=== PATIENT | male | born 1975 ===

== ENCOUNTER 2016-08-02 07:18 | Emergency (ER) | payer OTHER ==
--- NOTE | 2016-08-02 07:55 | C.PDOC ---
History Of Present Illness Patient is a 41 y/o male that presents to the ED for evaluation of sudden onset of right lower back pain that developed this morning. Patient states that his pain radiates down to right thigh, and notes numbness to right leg. Pt reports the pain is 10/10 in severity, and is described as burning sensation. Pt denies having this type of pain in the past. 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 Otherwise, denies any urinary symptoms, abdominal pain, n/v/d, constipation, fever, chills, or any other associated symptoms at this time. Time Seen by Provider: 08/02/16 07:29 Chief Complaint (Nursing): Back Pain History Per: Patient History/Exam Limitations: no limitations Onset/Duration Of Symptoms: Hrs Current Symptoms Are (Timing): Still Present Quality Of Discomfort: Burning, "Pain" Severity: Severe Pain Scale Rating Of: 10 Previous Symptoms: None Associated Symptoms: New Numbness. denies: Incontinence, New Weakness Exacerbating Factor(s): Nothing Recent travel outside of the [place]: No Additional History Per: Patient Past Medical History Reviewed: Historical Data, Nursing Documentation, Vital Signs Vital Signs: Last Vital Signs Temp 97.5 F L 08/02/16 10:51 Pulse 86 08/02/16 10:51 Resp 17 08/02/16 10:51 BP 129/72 08/02/16 10:51 Pulse Ox 97 08/02/16 11:17 Family History: States: Unknown Family Hx Review Of Systems Except As Marked, All Systems Reviewed And Found Negative. Constitutional: Negative for: Fever, Chills Gastrointestinal: Negative for: Nausea, Vomiting, Abdominal Pain, Diarrhea, Constipation Genitourinary: Negative for: Dysuria, Incontinence, Hematuria Musculoskeletal: Positive for: Back Pain (right lower), Leg Pain (right) Neurological: Positive for: Numbness (right leg). Negative for: Weakness, Headache, Dizziness Physical Exam - Physical Exam Appears: Non-toxic, In Acute Distress (visibly in pain) Skin: Normal Color, Warm, Dry Head: Atraumatic, Normacephalic Neck: Normal ROM, Supple Chest: Symmetrical Cardiovascular: Rhythm Regular Respiratory: Normal Breath Sounds, No Rales, No Rhonchi, No Wheezing Back: Normal Inspection, No CVA Tenderness, No Vertebral Tenderness, No Decreased ROM, No Paraspinal Tenderness Extremity: Normal ROM, No Tenderness, No Pedal Edema, Capillary Refill (< 2 sec. ), No Deformity, No Swelling Extremity: Bilateral: Atraumatic, Normal Color And Temperature, Normal ROM Neurological/Psych: Oriented x3, Normal Speech, Normal Cognition, Normal Motor, Normal Sensation ED Course And Treatment O2 Sat by Pulse Oximetry: 97 (on RA) Pulse Ox Interpretation: Normal Progress Note: Labs ordered and reviewed. Patient was treated with Motrin PO, Tylenol PO, Valium PO, and Prednisone PO. On reassessment, patient is resting comfortably, reports improvement of back pain, no fever, no bony tenderness, no numbness, no weakness, or abdominal pain. Patient is ambulatory in the emergency department with no signs of discomfort. Patient was advised to follow up with their physician in 1-2 days. Medical Decision Making Medical Decision Making: patient feeling better. Disposition Counseled Patient/Family Regarding: Diagnosis, Need For Followup, Rx Given - Disposition Referrals: [facility] [Outside] Disposition: HOME/ ROUTINE Disposition Time: 09:40 Condition: GOOD Additional Instructions: Follow up with your doctor, or the clinic. Take medications as indicated. Rest for the next few days. Return to the Emergency Department with any further concerns. Prescriptions: Prednisone [Deltasone] 60 mg PO DAILY #9 tablet Ibuprofen [Motrin] 600 mg PO TID #15 tab diaZEpam [Valium] 5 mg PO TID #15 tab Instructions: Sciatica (ED), Back Exercises (ED) Forms: General Discharge Instructions, School Excuse, Work Excuse - POA Present On Arrival: None - Clinical Impression Clinical Impression: Sciatica - Scribe Statement The provider has reviewed the documentation as recorded by the Racquel Perez Provider Attestation: All medical record entries made by the Racquel were at my direction and personally dictated by me. I have reviewed the chart and agree that the record accurately reflects my personal performance of the history, physical exam, medical decision making, and the department course for this patient. I have also personally directed, reviewed, and agree with the discharge instructions and disposition.
[2016-08-02 10:54] VITALS: BP 129/72; PULSE 86; RESP 17; TEMP 97.5
[2016-08-02 11:17] VITALS: O2SAT 97
== END 2016-08-02 11:30 | disposition home or self-care (01) ==
LOC: C.ER 07:18
DX: M54.41 Lumbago with sciatica, right side (principal)